=== PATIENT | male | born 1990 | race Caucasian/White ===

== ENCOUNTER 2020-11-12 10:13 | Emergency (ER) | payer BC, SELFPAY ==
[2020-11-12 10:29] VITALS: BP 142/88; PULSE 103; RESP 16; TEMP 36.6; O2SAT 97
[2020-11-12 10:37] VITALS: BP 142/88; PULSE 103; RESP 16; TEMP 36.6; O2SAT 97
--- NOTE | 2020-11-12 11:20 | ED.URI ---
HPI - URI/Sore Throat General Chief Complaint: Upper Respiratory Infection Stated Complaint: Congestion,Sore Throat Time Seen by Provider: 11/12/20 11:20 Source: patient, RN notes reviewed and old records reviewed Mode of arrival: ambulatory Limitations: no limitations History of Present Illness HPI Narrative: 29 year old male who presents to [facility] for rehabilitation care with complaints of sore throat starting today with nasal congestion, runny nose since Wednesday. Patient states that he has history of frequent strep in past and has not had any COVID vaccinations. Patient denies any know fevers, chills or any body aches, denies any cough or shortness of breath. Patient states tht he has taken some Benadryl for his sinus congestion and nasal drainage. MD elicited complaint: sore throat, rhinorrhea and nasal congestion Pertinent past history: other (strep throat) Treatments prior to arrival: acetaminophen and other (Benadryl) Related Data Allergies Allergy/AdvReac Type Severity Reaction Status Date / Time No Known Allergies Allergy Verified 11/12/20 10:17 Review of Systems Review of Systems: CONSTITUTIONAL: Denies fever, chills, or sweats. EYES: Denies visual changes, redness, or discharge. ENT: Positive for rhinorrhea, congestion, sore throat, no otalgia. CARDIOVASCULAR: Denies chest pain, palpitations, or edema. RESPIRATORY: Denies cough or dyspnea. GASTROINTESTINAL: Denies abdominal pain, nausea, vomiting, or diarrhea. GENITOURINARY: Denies dysuria or hematuria. SKIN: Denies rash or itching. MUSCULOSKELETAL: Denies back pain, joint pain, or myalgia. NEUROLOGIC: Denies headache, numbness, or weakness. PSYCHIATRIC: Denies anxiety or depression. All systems reviewed & are unremarkable except as noted in HPI and below [facility] Past Medical History Medical History (Updated 11/13/20 @ 00:01 by Kim Fuentes) Strep pharyngitis Surgical History Surgical History (Updated 11/15/20 @ 11:58 by Corinna Metz NP) No history of previous surgery Family History Family History (Updated 11/15/20 @ 11:58 by Corinna Metz NP) Mother COPD (chronic obstructive pulmonary disease) Social History Social History (Updated 11/15/20 @ 11:58 by Corinna Metz NP) Smoking status: Never smoker Alcohol intake: current Alcohol use details: social Substance use: never Living arrangements: with family Gender identity (if verbalized by the patient): Male Comments At time of signature, agree with nursing past medical, surgical, social and family history. There is no relevant family history pertinent to the presenting complaint Exam Narrative: GENERAL: Well-appearing, well-nourished, and in no acute distress. HEAD: Normocephalic, atraumatic. EYES: PERRLA and EOMI. ENT: Nares light red with clear rhinorrhea no epistaxis. Mucous membranes moist.TM's normal with good light reflex, Throat is red with no exudate or lesions, tonsils red and swollen painful swallowing NECK: Supple.lymphadenopathy noted CHEST: Clear to auscultation. No respiratory distress.no cough SAO2 97% on room air HEART: Regular rate and rhythm. No murmur heard. Normal peripheral pulses. ABDOMEN: Soft, nontender, nondistended, normal active bowel sounds. EXTREMITIES: Normal range of motion. No edema. SKIN: Warm, dry, no rash. NEURO: No focal deficits. Alert and oriented x3. Course Vital Signs Vital signs: Vital Signs Temperature 36.6 C 11/12/20 10:29 Pulse Rate 103 H 11/12/20 10:29 Respiratory Rate 16 11/12/20 10:29 Blood Pressure 142/88 H 11/12/20 10:29 Pulse Oximetry 97 11/12/20 10:29 Temperature 36.6 C 11/12/20 10:37 Pulse Rate 103 H 11/12/20 10:37 Respiratory Rate 16 11/12/20 10:37 Blood Pressure 142/88 H 11/12/20 10:37 Pulse Oximetry 97 11/12/20 10:37 MDM - URI/Sore Throat Differential Diagnosis Differential diagnosis: Likely upper respiratory infection, viral infection, pharyngitis and other (tonsillitis, screen for
[2020-11-13 15:30] LABS: SARS-CoV-2 RNA PCR Negative
== END 2020-11-12 11:46 | disposition home or self-care (01) ==
PROVIDERS: Emergency Provider Registered Nurse
DX: J03.90 Acute tonsillitis, unspecified (principal); Z20.822 Contact with and (suspected) exposure to COVID-19
CPT/HCPCS: 87081; 87426; 87880; 99203; 99213; C9803; G0463; U0003; U0005